=== PATIENT | male | born 1930 | race Caucasian/White ===

== ENCOUNTER → 2017-11-16 | Outpatient (CLI) | payer MEDICARE ==
[~2017-11-16] MED LIST: ASPI81TA94 PO; BENA40TA52 PO; CYAN100017 PO; GLIP-152 PO; IRON150C19 PO; LOVA40TA89 PO; METF-420 PO; PEG4000S14 PO; PRAV40TA78 PO; RANI-324 PO; RANI150C17 PO; SITA100T PO; SITA50TA6 PO; SULF-198 PO
[2017-11-16 12:05] LABS: PLATELET COUNT, AUTOMATED 471 K/uL (150-450)
== END ==
LOC: LAB 11:12
PROVIDERS: ATTEND Surgery
DX: R82.90 Unspecified abnormal findings in urine (principal); B96.89 Other specified bacterial agents as the cause of diseases classified elsewhere; D64.9 Anemia, unspecified; R63.4 Abnormal weight loss; Z87.448 Personal history of other diseases of urinary system; R63.0 Anorexia; E11.9 Type 2 diabetes mellitus without complications
CPT/HCPCS: 36415; 81001; 82040; 82247; 82248; 82310; 82374; 82435; 82565; 82947; 83036; 84075; 84132; 84155; 84295; 84443; 84450; 84460; 84520; 85025; 87077; 87088; 87186; 87205

== ENCOUNTER → 2017-11-19 | Outpatient (CLI) | payer MEDICARE ==
[~2017-11-19] MED LIST changes: +IOPAMIDOL 76% 75 ML INFUS BTL 75 ML ONE; +NS 0.9% 50 ML VIAL 50 ML ONE; +NS(*) 0.9% 500 ML BAG 500 ML IV PRN
[2017-11-19 09:09] VITALS: BP 106/72
--- NOTE | 2017-11-19 11:31 | RADIOLOGY IMAGING REPORT ---
FACILITY: [facility] PATIENT NAME: Antony Arceo : 1930 MR: [id number] V: [id number] EXAM DATE: ORDERING PHYSICIAN: ZI SUAZO TECHNOLOGIST: Location: [facility] [place] Patient: Antony Arceo : 1930 Visit/Account:[id number] Date of Sevice: 11/19/2017 ADDENDUM #1 Just above and to the left of the sigmoid colon is an irregular collection with thin enhancing wall a nd small air bubbles worrisome for an abscess. This is best seen on axial image 108 coronal image 43 Report Dictated By: Tyra Field MD at 11/19/2017 11:33 AM Report E-Signed By: Tyra Field MD at 11/19/2017 11:36 AM ORIGINAL REPORT ABDOMEN/PELVIS WITH CONTRAST HISTORY: Deficiency anemia TECHNIQUE: Following administration of IV contrast contiguous axial images acquired through the abdom en/pelvis. Coronal and sagittal reformatting also performed. Dose Lowering Technique One of the following dose optimization techniques was utilized in the performance of this exam: Autom ated exposure control; adjustment of the mA and/or kV according to the patient's size; or use of an i terative reconstruction technique. Specific details can be referenced in the facility's radiology C T exam operational policy. CONTRAST: 75 mL Isovue-370 COMPARISON: None. FINDINGS: Visualized lung bases: Extensive reticular changes seen in the lower lung jiménez likely chronic. Nu merous small calcifications also noted in the inferior right middle lobe. Coronary artery calcificat ions are present Hepatobiliary: There is a 1.8 x 2.3 cm hypoattenuating region seen in the inferior left lobe of the liver Spleen: Negative. Adrenals: Negative. Pancreas: Negative. Kidneys ureters or bladder and GI: There is mild fullness of the renal collecting systems bilaterally in addition to the ureters. Bladder is markedly distended six extending to just above the level of the umbilicus and contains several diverticula along superior aspect. There is marked irregular thic kening enhancement along the posterior and left lateral wall of the bladder is immediately adjacent t o extremely thickened irregular long segment of sigmoid colon. There are infiltrative changes seen i n the pericolonic fat The irregular thickened left lateral wall of the bladder appears to be in inti mate contact with this abnormal appearing sigmoid colon. Is a large amount of air within the bladder . There are numerous diverticula seen throughout the sigmoid colon.. There is a small hiatal hernia Genitalia: Prostate gland appears small GI: Please see above discussion under kidneys ureters and bladder Vessels/spaces/nodes: There are moderate vascular calcifications present and eccentric mural thrombu s in the nonaneurysmally dilated infrarenal abdominal aorta Bones/soft tissues: There is a small umbilical hernia containing fat. There are spondylotic changes of the thoracolumbar spine Additional findings: None pertinent. IMPRESSION: There are extensive reticular changes in the lower lung jiménez which are likely chronic. There also appears to be evidence of a prior granulomatous process There is a 1.8 x 2.3 cm hypoattenuating region seen in the inferior left lobe of the liver. This jarrett s not appear to represent a simple cyst. This could be further evaluated with MR There is fullness of the renal collecting systems and ureters bilaterally. Urinary bladder is marked ly distended to just above the level of the umbilicus and contains diverticula. Along the inferior a nd left lateral wall of the bladder there is marked irregular thickening with enhancement. This wall appears to be intimately related to the sigmoid colon where there is a long irregular thickened segm ent with infiltrative changes in the pericolonic fat. Large amount of air is noted in the bladder wh ich may be secondary to a vesicocolic fistula. There are numerous diverticula in the sigmoid colon. The abnormal mouna arance may be secondary to acute diverticulitis although neoplasm should be exclude d. A message was left for ZI SUAZO at 11/19/2017 11:28 AM. Report Dictated By: Tyra Field MD at 11/19/2017 11:06 [facility] E-Signed By: Luciano Henley at 11/19/2017 11:28 AM WSN:[email or web address]
== END ==
LOC: CT 03:49
PROVIDERS: ATTEND Surgery
DX: Z29.8 Encounter for other specified prophylactic measures (principal); J98.4 Other disorders of lung; I25.10 Atherosclerotic heart disease of native coronary artery without angina pectoris; K57.30 Diverticulosis of large intestine without perforation or abscess without bleeding; K44.9 Diaphragmatic hernia without obstruction or gangrene; K42.9 Umbilical hernia without obstruction or gangrene
CPT/HCPCS: 74177; J7040; J7050; Q9967; 96360

== ENCOUNTER → 2017-11-22 | Outpatient (CLI) | payer MEDICARE ==
[~2017-11-22] MED LIST changes: -IOPAMIDOL 76% 75 ML INFUS BTL 75 ML ONE; -NS 0.9% 50 ML VIAL 50 ML ONE; -NS(*) 0.9% 500 ML BAG 500 ML IV PRN
== END ==
LOC: LAB 07:33
PROVIDERS: ATTEND Family Medicine
DX: E11.9 Type 2 diabetes mellitus without complications (principal)
CPT/HCPCS: 36415; 82565

== ENCOUNTER → 2017-11-23 | Outpatient (CLI) | payer MEDICARE ==
[~2017-11-23] MED LIST changes: +BARIUM SULFATE 148 GM POWDER ONE; +BARIUM SULFATE 240 ML ORAL SUS (NECTAR) ONE
--- NOTE | 2017-11-23 17:14 | RADIOLOGY IMAGING REPORT ---
FACILITY: [facility] [place] PATIENT NAME: Antony Arceo : 1930 MR: [id number] V: [id number] EXAM DATE: ORDERING PHYSICIAN: ZI SUAZO TECHNOLOGIST: Location: [facility] [place] Patient: Antony Arceo : 1930 Visit/Account:[id number] Date of Sevice: 11/23/2017 Exam type: ESOPH VIDEO SWALLOWING History: Dysphasia Comparison: None. Findings: The modified barium swallow was performed by the speech pathologist. The patient received various li quids barium impregnated solids and a barium tablet. Please see the speech pathologist report for co mplete details.. The total fluoroscopy time was 2.9 minutes. The fluoroscopy dose was 7.6 mGray IMPRESSION: 1. As above Report Dictated By: Tyra Filed MD at 11/23/2017 5:07 PM Report E-Signed By: Tyra Field MD at 11/23/2017 5:09 PM WSN:[email or web address]
--- NOTE | 2017-11-24 13:46 | SLP MODIFIED BARIUM SWALLOW ---
Speech Language Pathology Modified Barium Swallow Evaluation Report Date of Evaluation: 11-24-17 Patient Name: Antony Arceo Patient : 1930 Physician: Andry Newman MD Clinician: Анна Hemphill M.S., CCC-[employer] BACKGROUND The patient is a 86 yr old male. The patient was referred for an MBS to assess swallow structure and function as indicated by witnessed aspiration of barium during a recent radiological examination. Pt denies s/s of dysphagia. Denies hx of pneumonia. Oxygen Supplementation: No Level of Consciousness: Non altered Cognitive/Linguistic: intact Orientation: x4 Language: -expressive: nonaphasic -receptive: nonaphasic Speech: -non-apraxic -non-dysarthric Voice -Dysphonia: hoarse -Nasal emission: No -Hypernasality: No -Wet Vocal Quality: No Non-verbal Oral Structure and Function: within functional limits for speech and swallow Pain with Swallow: Denies. MODIFIED BARIUM SWALLOW In conjunction with radiology, lateral view with trials of the following consistencies: thin barium liquid (noncarbonated), barium marked pureed, mechanical soft, and regular food consistencies, and a 1cm barium pill. ORAL STAGE Pt takes large bites/sips. He reports this is usual for him. He does not demonstrate any difficulty managing bolus size but this may increase risk of aspiration Thin Liquids: no evidence of dysphagia . WNL Pureed Foods: no evidence of dysphagia . WNL Mechanical Soft Foods: no evidence of dysphagia . WNL Regular Foods: no evidence of dysphagia . WNL. PHARYNGEAL STAGE Thin Liquid: no evidence of dysphagia WNL. Foods: no evidence of dysphagia. Premature spillage of bolus from epiglottic vallecula to pyriform sinus with mechanical soft foods. With puree and regular consistency foods, premature spillage from epiglottic vallecula was present but mild and did not reach pyriform sinus. All boluses fully cleared without further s/s of dysphagia. Pt does not appear to struggle with managing premature bolus however it may increase risk of aspiration. Penetration/Aspiration Scale*: Thin liquid: Score of 1= Contrast does not enter airway [place] thick liquids: Score of 1= Contrast does not enter airway [place] thick liquids: Score of 1= Contrast does not enter airway Puree: Score of 1= Contrast does not enter airway Soft and regular solids: Score of 1= Contrast does not enter airway *(Zacarias et al. 1996) ESOPHAGEAL STAGE Peristaltic movement appears to be WNL Cervical Esophagus: Materials witnessed clearing from cervical esophagus WNL. Thoracic Esophagus: Materials witnessed clearing from upper/mid/lower thoracic esophagus WNL. CAM: Non witnessed. Laryngopharyngeal Reflux (LPR) None witnessed. BARIUM PILL: 1cm barium pill taken with thin liquids. No oral, pharyngeal, or esophageal dysphagia witnessed. SUMMARY Dysphagia Severity Rating Scale: 0; Normal swallowing mechanism. Aspiration Risk: Low. Large bolus size of liquids and solids may increase patients risk of aspiration however the patient demonstrates no difficulty managing large bolus at this time. No oral or pharyngeal stage dysphagia witnessed. 1.Dysphagia Severity Rating Scale (Gramigna, 2006; Fletcher et. al., 1990): 0 Normal swallow mechanism 2.No modification in consistency of diet is indicated. RECOMMENDATIONS 1. Speech Therapy: Not recommended at this time. Thank you for this referral. Please call [phone] to contact the [employer]. Анна Hemphill M.S., [facility]-[employer] Physician Signature Date MTDD
== END ==
LOC: RAD 01:52
PROVIDERS: ATTEND Surgery
DX: R13.10 Dysphagia, unspecified (principal)
CPT/HCPCS: 74230

== ENCOUNTER → 2017-11-30 | Outpatient (CLI) | payer MEDICARE ==
[~2017-11-30] MED LIST changes: -BARIUM SULFATE 148 GM POWDER ONE; -BARIUM SULFATE 240 ML ORAL SUS (NECTAR) ONE
== END ==
LOC: LAB 15:19
PROVIDERS: ATTEND Family Medicine
DX: N17.9 Acute kidney failure, unspecified (principal)
CPT/HCPCS: 36415; 82310; 82374; 82435; 82565; 82947; 84132; 84295; 84520

== ENCOUNTER → 2017-12-07 | Outpatient (CLI) | payer MEDICARE ==
[2017-12-07 15:44] LABS: PLATELET COUNT, AUTOMATED 424 K/uL (150-450)
== END ==
LOC: LAB 15:25
PROVIDERS: ATTEND Family Medicine
DX: N17.9 Acute kidney failure, unspecified (principal); Z83.3 Family history of diabetes mellitus
CPT/HCPCS: 36415; 82310; 82374; 82435; 82565; 82947; 84132; 84295; 84520; 85025

== ENCOUNTER → 2017-12-13 | Outpatient (CLI) | payer MEDICARE ==
[~2017-12-13] MED LIST changes: +INSU100I30 SQ; +[UNRECOGNIZED DRUG - CODE] MC
== END ==
LOC: LAB 09:46
PROVIDERS: ATTEND Family Medicine
DX: N17.9 Acute kidney failure, unspecified (principal)
CPT/HCPCS: 36415; 82310; 82374; 82435; 82565; 82947; 84132; 84295; 84520

== ENCOUNTER → 2017-12-28 | Outpatient (CLI) | payer MEDICARE ==
[2017-12-28 16:03] LABS: PLATELET COUNT, AUTOMATED 367 K/uL (150-450)
== END ==
LOC: LAB 15:49
PROVIDERS: ATTEND Surgery
DX: D64.9 Anemia, unspecified (principal); I10 Essential (primary) hypertension; E11.9 Type 2 diabetes mellitus without complications
CPT/HCPCS: 36415; 82310; 82374; 82435; 82565; 82947; 84132; 84295; 84520; 85025

== ENCOUNTER → 2018-01-24 | Outpatient (CLI) | payer MEDICARE ==
[2018-01-24 14:26] LABS: PLATELET COUNT, AUTOMATED 331 K/uL (150-450)
== END ==
LOC: LAB 13:51
PROVIDERS: ATTEND Surgery
DX: D64.9 Anemia, unspecified (principal); R53.1 Weakness; Z83.3 Family history of diabetes mellitus
CPT/HCPCS: 36415; 82040; 82247; 82248; 82310; 82374; 82435; 82565; 82947; 84075; 84132; 84134; 84155; 84295; 84450; 84460; 84520; 85025

== ENCOUNTER → 2018-02-10 | Outpatient (CLI) | payer MEDICARE ==
[~2018-02-10] MED LIST changes: +FLUT16SP19 NS
== END ==
LOC: LAB 10:36
PROVIDERS: ATTEND Urology
DX: Z12.5 Encounter for screening for malignant neoplasm of prostate (principal); N40.1 Benign prostatic hyperplasia with lower urinary tract symptoms
CPT/HCPCS: 36415; G0103; 84153

== ENCOUNTER → 2018-03-14 | Outpatient (CLI) | payer MEDICARE ==
[~2018-03-14] MED LIST changes: +RANI-318 PO; -RANI-324 PO; +RANI-366 PO
[2018-03-14 10:40] LABS: PLATELET COUNT, AUTOMATED 302 K/uL (150-450)
== END ==
LOC: LAB 10:08
PROVIDERS: ATTEND Family Medicine
DX: E11.9 Type 2 diabetes mellitus without complications (principal); D64.9 Anemia, unspecified
CPT/HCPCS: 36415; 82040; 82247; 82310; 82374; 82435; 82565; 82947; 83036; 84075; 84132; 84155; 84295; 84450; 84460; 84520; 85025

== ENCOUNTER → 2018-08-17 | Outpatient (CLI) | payer MEDICARE ==
[~2018-08-17] MED LIST changes: -BENA40TA52 PO; +BENA40TA53 PO; -METF-420 PO; +METF-452 PO
[2018-08-17 11:18] LABS: PLATELET COUNT, AUTOMATED 318 K/uL (150-450)
== END ==
LOC: LAB 10:57
PROVIDERS: ATTEND Family Medicine
DX: E11.9 Type 2 diabetes mellitus without complications (principal)
CPT/HCPCS: 36415; 82040; 82247; 82310; 82374; 82435; 82565; 82947; 83036; 84075; 84132; 84155; 84295; 84450; 84460; 84520; 85025

== ENCOUNTER → 2018-12-06 | Outpatient (CLI) | payer MEDICARE | LOC: LAB 11:33 | PROVIDERS: ATTEND Pharmacist Pharmacotherapy | DX: E11.65 Type 2 diabetes mellitus with hyperglycemia (principal) | CPT/HCPCS: 36415; 82040; 82247; 82310; 82374; 82435; 82565; 82947; 83036; 84075; 84132; 84155; 84295; 84450; 84460; 84520 ==

== ENCOUNTER → 2019-03-15 | Outpatient (CLI) | payer MEDICARE ==
[2019-03-15 11:34] LABS: PLATELET COUNT, AUTOMATED 314 K/uL (150-450)
== END ==
LOC: LAB 11:04
PROVIDERS: ATTEND Family Medicine
DX: E11.9 Type 2 diabetes mellitus without complications (principal)
CPT/HCPCS: 36415; 82310; 82374; 82435; 82565; 82947; 83036; 84132; 84295; 84520; 85025

== ENCOUNTER 2019-05-18 10:18 | Emergency (ER) | payer MEDICARE ==
[~2019-05-18 10:18] MED LIST changes: -RANI-366 PO; +RANI-54 PO; +[UNRECOGNIZED DRUG - CODE] SQ
[2019-05-18 10:46] LABS: PLATELET COUNT, AUTOMATED 304 K/uL (150-450)
[2019-05-18] MEDS ORDERED: IOPAMIDOL 76% 100 ML INFUS BTL 100 ML ONE (10:47)
[2019-05-18] MEDS ORDERED: NS(*) 0.9% 50 ML BAG 50 ML ONE (10:47)
--- NOTE | 2019-05-18 11:03 | EKG ---
FACILITY: [facility] - [place] PATIENT NAME: GIANCARLO FLORES : [id number] MR: [id number] V: [id number] EXAM DATE: ORDERING PHYSICIAN: TAYLOR HOANG TECHNOLOGIST: MARILEE Test Reason : POSS. STROKE Blood Pressure : / mmHG Vent. Rate : 093 BPM Atrial Rate : 093 BPM P-R Int : 166 ms QRS Dur : 100 ms QT Int : 360 ms P-R-T Axes : 048 -11 -20 degrees QTc Int : 447 ms Normal sinus rhythm Low voltage QRS Borderline ECG When compared with ECG of 12-DEC-2014 11:27, premature ventricular complexes are no longer present Confirmed by Kade Kaur ([id number]) on 05/18/2019 10:36:48 PM Referred By: NATALYA Confirmed By:Kade Sorensen
[2019-05-18] MEDS ORDERED: COLD (11:05)
--- NOTE | 2019-05-18 11:11 | ER Report ---
History and Physical Time Seen By MD: 10:20 Hx. of Stated Complaint: pt presents from PT with a concern that pt is weaker than usual, unable to tie shoes and may have been drooling. pt is aao x3 is not drooling no facial droop and is equally weak bilat. pt states feels fine, noting a little trouble with speech HPI/ROS CHIEF COMPLAINT: Weakness, slurred speech HISTORY OF PRESENT ILLNESS: 88-year-old male accompanied by who states that he awoke at approximately 840, at 845 she noted he was having difficulty tying his shoes. Patient states this is because he was having confusion with shoe tying. He then went to physical therapy where he was having difficulty following instructions. It was thought that he may be week. Per , patient went to bed feeling normal, patient corroborates this as well. He denies recent fall, head injury, prior stroke, new weakness, chest pain, trouble breathing, nausea, vom iting. He denies bloody or black stools. He states he is not on blood thinners. He has had no recent surgeries or trauma. He has no brain mass. REVIEW OF SYSTEMS: Constitutional: No fever, no chills. Eyes: No discharge. ENT: No sore throat. Cardiovascular: No chest pain, no palpitations. Respiratory: No cough, no shortness of breath. Gastrointestinal: No abdominal pain, no vomiting. Genitourinary: no dysuria Musculoskeletal: No back pain. Skin: No rashes. Neurological: above Remainder of the 14 system rev: Yes Allergies: Coded Allergies: Penicillins (Verified Allergy, Unknown, 05/18/19) pseudoephedrine (Verified Allergy, Unknown, 05/18/19) hx of BPH No decongestants. Home Meds Active Scripts [place], Insulin Disposable (UNIFINE PENTIPS) 1 Each Dis.needle, EACH SQ 1-3XD, #1 3 Refills Prov:IGNACIO MOORE PHARMD 05/05/19 Insulin Glargine 100 Un/Ml Pen (LANTUS SOLOSTAR PEN) 100 Unit/1 Ml Insuln.pen, 26 UNIT SQ DAILY for 90 Days, #8 SYR 3 Refills Prov:IGNACIO MOORE PHARMD 02/01/19 Fluticasone Prop 50 Mcg Ns (FLONASE 50 MCG NS) 16 Gm [place].susp, 2 SPRAYS NS QDAY for 90 Days, #3 BOT 3 Refills Prov:AMPARO BOJORQUEZ MD 09/28/18 Ranitidine Hcl (RANITIDINE HCL) 150 Mg Tablet, 150 MG PO QHS for 90 Days, #90 TAB 3 Refills Prov:AMPARO BOJORQUEZ MD 08/17/18 Iron Polysaccharides Complex (POLYSACCHARIDE IRON 150) 150 Mg Capsule, 1 TAB PO DAILY for anemia, #100 CAPSULE 6 Refills Prov:AMPARO BOJORQUEZ MD 01/31/18 Reported Medications [otc cold] No Conflict Check 05/18/19 Cyanocobalamin (Vitamin B-12) (B-12) 1,000 Mcg Tablet, 1000 MCG PO DAILY 10/07/17 Reviewed Nurses Notes: Yes Old Medical Records Reviewed: Yes Hx Smoking: Yes ("some cigars and cig") Smoking Status: Former Smoker, Light Tobacco Smoker Hx Substance Use Disorder: No Constitutional Vital Sign - Last 24 Hours 05/18/19 05/18/19 05/18/19 05/18/19 10:18 10:22 10:23 10:30 Temp 97.6 Pulse ??? 106 Resp 16 B/P (MAP) 111/70 (84) 111/70 124/82 (96) Pulse Ox 86 O2 Delivery Room Air 05/18/19 05/18/19 05/18/19 05/18/19 10:48 10:52 11:00 11:18 Pulse 96 Resp 26 11 B/P (MAP) 116/73 (87) Pulse Ox 94 95 O2 Flow Rate 2.0 05/18/19 05/18/19 05/18/19 05/18/19 11:23 11:30 11:53 12:00 Pulse 86 86 Resp 15 23 B/P (MAP) 112/79 (90) 124/73 (90) Pulse Ox 92 05/18/19 05/18/19 05/18/19 05/18/19 12:23 12:30 12:53 13:00 Pulse 77 ??? Resp 24 15 B/P (MAP) 118/81 (93) 117/73 (88) Pulse Ox 81 05/18/19 05/18/19 05/18/19 13:05 13:30 13:35 Pulse ??? 77 Resp 21 20 B/P (MAP) 113/67 (82) Pulse Ox 87 94 Physical Exam General Appearance: The patient is alert, has no immediate need for airway protection and no signs of toxicity. Eyes: Pupils equal and round no pallor or injection. ENT, Mouth: Mucous membranes are moist. Respiratory: There are no retractions, lungs are clear to auscultation. Cardiovascular: Regular rate and rhythm. no m/r/g Gastrointestinal: Abdomen is soft and non tender, no masses, bowel sounds normal. Neurological: NIHSS 2 for LOC questions and dysarthria; otherwise normal Skin: Warm and dry, no rashes. Musculoskeletal: Neck is supple non tender. Extremities are nontender, nonswollen and have full range of motion. DIFFERENTIAL DIAGNOSIS: After history and physical exam differential diagnosis was considered for stroke, hypoglycemia, electrolyte abnormality, acs, or other emergnet etiology. Medical Decision Making Data Points Result Diagram: 05/18/19 1028 05/18/19 1028 Laboratory Hematology Test 05/18/19 10:28 White Blood Count 7.5 k/uL (4.5-11.0) Red Blood Count 3.99 M/uL (4.00-5.60) L Hemoglobin 11.2 g/dL (14.0-18.0) L Hematocrit 34.6 % (42.0-52.0) L Mean Corpuscular Volume 86.6 fL (80.0-96.0) Mean Corpuscular Hemoglobin 28.0 pg (26.0-33.0) Mean Corpuscular Hemoglobin Concent 32.3 g/dL (32.0-36.0) Red Cell Distribution Width 15.4 % (11.5-14.5) H Platelet Count 304 K/uL (150-450) Mean Platelet Volume 6.8 fL (7.2-11.1) L Neutrophils (%) (Auto) 67.8 % (39.4-72.5) Lymphocytes (%) (Auto) 20.1 % (17.6-49.6) Monocytes (%) (Auto) 9.3 % (4.1-12.4) Eosinophils (%) (Auto) 1.9 % (0.4-6.7) Basophils (%) (Auto) 0.9 % (0.3-1.4) Nucleated RBC Relative Count (auto) 0.0 /100WBC Neutrophils # (Auto) 5.1 K/uL (2.0-7.4) Lymphocytes # (Auto) 1.5 K/uL (1.3-3.6) Monocytes # (Auto) 0.7 K/uL (0.3-1.0) Eosinophils # (Auto) 0.1 K/uL (0.0-0.5) Basophils # (Auto) 0.1 K/uL (0.0-0.1) Nucleated RBC Absolute Count (auto) 0.00 K/uL Chemistry Test 05/18/19 10:28 05/18/19 10:53 05/18/19 11:35 Sodium Level 138 mmol/L (137-145) Potassium Level 4.3 mmol/L (3.5-5.0) Chloride Level 108 mmol/L (98-107) Carbon Dioxide Level 18 mmol/L (22-30) Blood Urea Nitrogen 31 mg/dl (9-21) Creatinine 1.70 mg/dl (0.66-1.25) Glomerular Filtration Rate Calc 38.4 Random Glucose 267 mg/dl (75-110) Calcium Level 8.4 mg/dl (8.4-10.2) Total Bilirubin 0.4 mg/dl (0.2-1.3) Aspartate Amino Transf (AST/SGOT) 18 U/L (0-35) Alanine Aminotransferase (ALT/SGPT) 19 U/L (0-56) Alkaline Phosphatase 78 U/L (0-126) Troponin I < 0.012 ng/ml Total Protein 7.6 g/dl (6.3-8.2) Albumin 3.4 g/dl (3.5-5.0) Thyroid Stimulating Hormone (TSH) 5.78 uIU/ml (0.46-4.68) Whole Blood Glucose 228 mg/DL (75-110) Lactate 1.5 mmol/L (0.7-2.1) Toxicology Test 05/18/19 11:35 05/18/19 11:44 Serum Alcohol < 10 mg/dl Urine Opiates Screen Negative Urine Barbiturates Screen Negative Ur Tricyclic Antidepressants Screen Negative Urine Phencyclidine Screen Negative Urine Amphetamines Screen Negative Urine Benzodiazepines Screen Negative Urine Cocaine Screen Negative Urine Cannabinoids Screen Negative Urinalysis Test 05/18/19 11:44 Urine Color Yellow Urine Clarity Turbid Urine pH 7.0 pH (4.8-9.5) Urine Specific [place] 1.044 Urine Protein 100 mg/dL (NEGATIVE) Urine Glucose (UA) Negative mg/dL (NEGATIVE) Urine Ketones Trace mg/dL (NEGATIVE) Urine Blood Moderate (NEGATIVE) Urine Nitrite Negative (NEGATIVE) Urine Bilirubin Negative (NEGATIVE) Urine Urobilinogen Negative mg/dL (0.2-1.9) Urine Leukocyte Esterase Large (NEGATIVE) Urine RBC 13 /HPF (0-2/HPF) Urine WBC 287 /HPF (0-5/HPF) Urine WBC Clumps Many /HPF Urine Squamous Epithelial Cells Many /LPF (</=FEW) Urine Bacteria Many /HPF (NONE-FEW) Urine Mucus None /HPF (NONE-FEW) EKG/Imaging EKG Interpretation 12 lead EKG: Rhythm: [normal sinus rhythm] [Maynard:] [normal] [QRS:] [normal] ST segments: [normal] [ ] Monitor Interpretation: Normal Sinus Rhythm ED Course/Re-evaluation ED Course 88-year-old male presents with onset of some confusion and difficulty with word finding with last known normal at 8 PM last night. This was first noted soon after he woke up when he is having trouble tying his shoes. This was then further noted while he was in physical therapy today. As he presents he realizes that he has had this difficulty and feels that is continuing though not worsening. NIH stroke scale did not find other findings. The [facility] stroke neurologist evaluate the patient and does not feel that he has had a stroke. We evaluated for other causes of mental status change/encephalopathy/delirium. Patient does not have any waxing or waning. He is otherwise fairly functional besides the confusion. Patient and do not note that he has had prior stroke, however CT shows evidence of this. Ultimately, I do not find concerning toxic, metabolic, electrolyte or other cause of his symptoms. 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 He has had this type of finding before as well. He does not have other systemic signs of infection, including no fever and normal leukocytes, therefore I do not think the urine sample is evidence of urinary tract infection. However, as I discussed with patient and , if symptoms worsen including fever, weakness, or other signs of infection, I recommend patient return immediately for further evaluation including evaluation for UTI/pyelonephritis. I discussed with the patient's primary doctor who has arranged follow-up the patient on Wednesday. I talked with patient and were comfortable with the plan of going home and understand the importance of returning immediately for any change in symptoms. Decision to Disposition Date: May 18, 2019 Decision to Disposition Time: 16:53 Depart Departure Latest Vital Signs Vital Signs Date Time Temp Pulse Resp B/P (MAP) Pulse Ox O2 Delivery O2 Flow Rate FiO2 05/18/19 13:35 77 20 94 05/18/19 13:30 113/67 (82) 05/18/19 10:52 2.0 05/18/19 10:23 97.6 Room Air Impression: Primary Impression: Altered mental status Condition: Improved Disposition: HOME OR SELF-CARE Referrals: AMPARO BOJORQUZE MD (PCP) 2 Days Patient Instructions: Altered Mental Status (ED) Additional Instructions: As we discussed, while we did not find a clear cause of your symptoms, please return immediately if you are feeling worse, including fevers, increased confusion, change in urination, or any other concerns. You have follow up with Dr. Callahan on Wednesday. Problem Qualifiers Primary Impression: Altered mental status Altered mental status type: unspecified Qualified Codes: R41.82 - Altered mental status, unspecified TAYLOR HOANG MD May 18, 2019 11:11
--- NOTE | 2019-05-18 11:12 | RADIOLOGY IMAGING REPORT ---
FACILITY: [facility] - [place] PATIENT NAME: Antony Arceo : 1930 MR: [id number] V: [id number] EXAM DATE: ORDERING PHYSICIAN: TAYLOR HOANG TECHNOLOGIST: [place] [facility] [place] Antony Arceo : 1930 Visit/Account:[id number] Date of Sevice: 05/18/2019 EXAMINATION: CT head without IV contrast HISTORY: Stroke alert, dysarthria and confusion COMPARISON: None. TECHNIQUE: Contiguous axial images were obtained from the skull base to the vertex without intraven ous contrast. Sagittal and coronal reformatted images are also submitted. One of the following dose optimization techniques was utilized in the performance of this exam: Autom ated exposure control; adjustment of the mA and/or kV according to the patient's size; or use of an i terative reconstruction technique. Specific details can be referenced in the facility's radiology C T exam operational policy. FINDINGS: Old injury/infarct involving the posterior left frontal lobe near the vertex. Ventricles and sulci are grossly symmetric reflecting atrophy. Ventricles: Normal. Acute ischemic changes: None. Hemorrhage: None. Masses/edema: None. Combs-white: Negative. White matter: Mild chronic low-density changes.. Vessels: Atherosclerotic calcifications in the carotid siphons.. Extra-axial: Negative. Calvarium/scalp: Negative. Skull base/visualized face: Negative. Visualized sinuses/orbits: Status post bilateral lens removal or replacement. IMPRESSION: 1. No acute intracranial findings. 2. 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 3. Diffuse brain atrophy and atherosclerotic disease. Results were discussed with TAYLOR HOANG at 05/18/2019 11:02 AM. Report Dictated By: ALYSON SEWELL at 05/18/2019 10:58 AM Report E-Signed By: ALYSON SEWELL at 05/18/2019 11:03 AM WSN:[email or web address]
--- NOTE | 2019-05-18 11:27 | RADIOLOGY IMAGING REPORT ---
FACILITY: [facility] [place] PATIENT NAME: Antony Arceo : 1930 MR: [id number] V: [id number] EXAM DATE: ORDERING PHYSICIAN: TAYLOR HOANG TECHNOLOGIST: Location: [facility] [place] Patient: Antony Arceo : 1930 Visit/Account:[id number] Date of Sevice: 05/18/2019 EXAMINATION: CTA neck with IV contrast CTA head with IV contrast HISTORY: Dysarthria and confusion COMPARISON: None. TECHNIQUE: Overlapping thin sections were obtained during a bolus of IV contrast from the aortic ar ch through the vertex. Reconstruction of the source data set includes multiplanar 2D in the bilateral oblique planes, and 3D sagittal and coronal thin slab MIP series. Record Retrieval Specialist images have been st ored on PACS. Stenosis of the internal carotid arteries are calculated using NASCET criteria. CONTRAST: 75 mL of IV Isovue-370 One of the following dose optimization techniques was utilized in the performance of this exam: Autom ated exposure control; adjustment of the mA and/or kV according to the patient's size; or use of an i terative reconstruction technique. Specific details can be referenced in the facility's radiology C T exam operational policy. FINDINGS: Aortic arch and great vessels: Negative. Right CCA/ICA: Negative. Left CCA/ICA: Negative. Vertebrobasilar: Negative. [place]: Negative. GEOFFREY circulation: Negative. MCA circulation: Negative. AIRCRAFT ELECTRICIAN circulation: Negative. Additional non-angiographic findings: None significant. Extensive degenerative changes of the cervical spine. IMPRESSION: 1. No acute intracranial findings. 2. No acute vascular abnormality. Report Dictated By: ALYSON SEWELL at 05/18/2019 11:12 AM Report E-Signed By: ALYSON SEWELL at 05/18/2019 11:20 AM WSN:[email or web address]
--- NOTE | 2019-05-18 11:28 | RADIOLOGY IMAGING REPORT ---
[facility] PATIENT NAME: Antony Arceo : 1930 MR: [id number] V: [id number] EXAM DATE: ORDERING PHYSICIAN: TAYLOR HOANG TECHNOLOGIST: Location: [facility] [place] Patient: Antony Arceo : 1930 Visit/Account:[id number] Date of Sevice: 05/18/2019 EXAMINATION: CTA neck with IV contrast CTA head with IV contrast HISTORY: Dysarthria and confusion COMPARISON: None. TECHNIQUE: Overlapping thin sections were obtained during a bolus of IV contrast from the aortic ar ch through the vertex. Reconstruction of the source data set includes multiplanar 2D in the bilateral oblique planes, and 3D sagittal and coronal thin slab MIP series. Manager Code images have been st ored on PACS. Stenosis of the internal carotid arteries are calculated using NASCET criteria. CONTRAST: 75 mL of IV Isovue-370 One of the following dose optimization techniques was utilized in the performance of this exam: Autom ated exposure control; adjustment of the mA and/or kV according to the patient's size; or use of an i terative reconstruction technique. Specific details can be referenced in the facility's radiology C T exam operational policy. FINDINGS: Aortic arch and great vessels: Negative. Right CCA/ICA: Negative. Left CCA/ICA: Negative. Vertebrobasilar: Negative. [place]: Negative. GEOFFREY circulation: Negative. MCA circulation: Negative. [employer] circulation: Negative. Additional non-angiographic findings: None significant. Extensive degenerative changes of the cervical spine. IMPRESSION: 1. No acute intracranial findings. 2. No acute vascular abnormality. Report Dictated By: ALYSON SEWELL at 05/18/2019 11:12 AM Report E-Signed By: ALYSON SEWELL at 05/18/2019 11:20 AM WSN:[id number]
[2019-05-18] MEDS ORDERED: NS(*) 0.9% 1000 ML BAG 1,000 ML IV ONE (11:30)
--- NOTE | 2019-05-18 12:37 | RADIOLOGY IMAGING REPORT ---
[place] [facility] [place]: Antony Arceo : 1930 MR: [id number] V: [id number] EXAM DATE: ORDERING PHYSICIAN: TAYLOR HOANG TECHNOLOGIST: Location: [facility] Patient: Antony Arceo : 1930 Visit/Account:[id number] Date of Sevice: 05/18/2019 EXAMINATION: Portable AP Chest HISTORY: Altered mental status. COMPARISON: None. FINDINGS: There are chronic appearing interstitial changes bilaterally. No focal consolidation or pleural effus ion. No pneumothorax. Normal cardiomediastinal silhouette. Normal heart size. There is mild central pulmonary vascular elvis estion. Visualized osseous structures appear intact. IMPRESSION: 1. Normal heart size with mild central pulmonary vascular congestion. 2. Mild chronic appearing interstitial changes in the lungs. No suspicious focal consolidation. Report Dictated By: Carl Kunz MD at 05/18/2019 12:28 PM Report E-Signed By: Carl Kunz MD at 05/18/2019 12:30 PM WSN:[id number]
[2019-05-18 13:30] VITALS: BP 113/67
== END 2019-05-18 13:53 | disposition home or self-care (01) ==
LOC: ER 10:32
DX: R41.82 Altered mental status, unspecified (principal)
CPT/HCPCS: 36416; 70450; 70496; 70498; 71045; 80305; 81001; 82274; 82607; 82948; 83605; 84443; 84484; 85025; 93005; 96360; 96361; 99284; G0480; J7030; J7050; Q9967; 80320; 82040; 82247; 82310; 82374; 82435; 82565; 82947; 84075; 84132; 84155; 84295; 84450; 84460; 84520

== ENCOUNTER → 2019-05-22 | Outpatient (CLI) | payer MEDICARE ==
[~2019-05-22] MED LIST changes: +COLD
[2019-05-22 10:42] LABS: PLATELET COUNT, AUTOMATED 273 K/uL (150-450)
== END ==
LOC: LAB 10:19
PROVIDERS: ATTEND Family Medicine
DX: E11.9 Type 2 diabetes mellitus without complications (principal)
CPT/HCPCS: 36415; 82310; 82374; 82435; 82565; 82947; 83036; 84132; 84295; 84520; 85025

== ENCOUNTER → 2019-06-12 | Outpatient (CLI) | payer MEDICARE ==
[~2019-06-12] MED LIST changes: +CITA-137 PO
[2019-06-12 13:01] LABS: PLATELET COUNT, AUTOMATED 351 K/uL (150-450)
== END ==
LOC: LAB 12:41
PROVIDERS: ATTEND Family Medicine
DX: E11.9 Type 2 diabetes mellitus without complications (principal); N18.9 Chronic kidney disease, unspecified
CPT/HCPCS: 36415; 82310; 82374; 82435; 82565; 82947; 84132; 84295; 84520; 85025